=== PATIENT | male | born 1950 | race Caucasian/White ===

== ENCOUNTER 2019-05-29 09:58 | Emergency (ER) | payer MEDICARE ==
[~2019-05-29] VITALS: Ht 180.3 cm; Wt 109.1 kg
[2019-05-29 10:10] VITALS: Ht 180.3 cm; Wt 109.1 kg
[2019-05-29] MEDS ORDERED: BAYER CHEWABLE81 MG PO (10:15)
[2019-05-29] MEDS ORDERED: AMBIEN10 MG PO (10:16)
[2019-05-29] MEDS ORDERED: PROTONIX40 MG PO (10:16)
[2019-05-29] MEDS ORDERED: ZYRTEC10 MG PO (10:16)
[2019-05-29] MEDS ORDERED: BENADRYL25 MG PO (10:16)
[2019-05-29] MEDS ORDERED: UROXATRAL10 MG PO (10:16)
[2019-05-29] MEDS ORDERED: ULTRAM50 MG PO (10:17)
[2019-05-29] MEDS ORDERED: AVAPRO150 MG PO (10:18)
[2019-05-29] MEDS ORDERED: STERAPRED 5MG 125 MG PO (10:18)
[2019-05-29] MEDS ORDERED: SINGULAIR10 MG PO (10:18)
[2019-05-29] MEDS ORDERED: CRESTOR5 MG PO (10:18)
[2019-05-29] MEDS ORDERED: ALENDRONAT70 MG/75 M PO (10:19)
[2019-05-29] MEDS ORDERED: FOLIC ACID1 MG PO (10:19)
[2019-05-29] MEDS ORDERED: METHOTREXATE2.5 MG PO (10:19)
[2019-05-29] MEDS ORDERED: ALBUTEROL SULF8.5 GM INH (10:20)
[2019-05-29] MEDS ORDERED: MEDROL DOSE PACK4 MG PO (10:20)
[2019-05-29] MEDS ORDERED: BREO ELLIPTA 11 EACH INH (10:20)
[2019-05-29 11:16] LABS: BASOPHILS 0.2 % (0-2); EOSINOPHILS 0.4 % (0-7); HEMATOCRIT 41.8 % (42.0-54.0); HEMOGLOBIN 14.4 g/dL (13.5-17.5); IMMATURE GRANULOCYTES 1.1 % (0-5); LYMPHOCYTES 5.5 % (15-50); MCHC 34.4 g/dL (31.0-37.0); MCV 90.1 fL (80.0-100.0); MEAN PLATELET VOLUME 9.6 fL (7.4-10.4); MONOCYTES 7.9 % (2-11); NEUTROPHILS 84.9 % (40-80); PLATELET COUNT 215 10x3/uL (130-400); RBC 4.64 10x6/uL (4.20-6.10); RDW 16.7 % (11.5-14.5); WBC 9.8 10x3/uL (4.8-10.8)
[2019-05-29 11:19] LABS: APTT 22.3 SECONDS (22.8-39.4); INR 0.99 (0.85-1.17); PROTIME 12.6 SECONDS (11.6-15.0)
[2019-05-29 11:22] LABS: CALC OSMOLALITY 277 mosm/kg (275-300); CALCIUM 8.6 mg/dL (8.5-10.1); CARBON DIOXIDE 24.3 mmol/L (21.0-32.0); CHLORIDE - SERUM 105 mmol/L (98-107); CREATININE - SERUM 0.9 mg/dL (0.6-1.3); GLUCOSE 107 mg/dL (74-106); POTASSIUM - SERUM 3.7 mmol/L (3.5-5.1); SODIUM 138 mmol/L (136-145); UREA NITROGEN 17 mg/dL (7-18); eGFR NON AFRICAN AMERICAN 89 mL/min (90-120)
[2019-05-29 11:36] LABS: ALKALINE PHOSPHATASE 67 U/L (46-116); ALT (SGPT) 44 U/L (10-68); BILIRUBIN - TOTAL 1.31 mg/dL (0.2-1.3); CKMB 2.6 U/L (0.0-3.6); CREATINE KINASE 97 UL (21-232); PRO BNP 14 pg/mL (0-125); PROTEIN - SERUM 7.2 g/dL (6.4-8.2); TROPONIN-I < 0.017 ng/mL (0.000-0.060)
[2019-05-29 12:55] VITALS: BP 140/98
== END 2019-05-29 13:17 | disposition home or self-care (01) ==
LOC: D.ER 09:58
PROVIDERS: Family Medicine
DX: R05 Cough (principal); I10 Essential (primary) hypertension